=== PATIENT | male | born 1990 | race Two or more races ===

== ENCOUNTER 2025-04-12 21:01 | Emergency (ER) | payer MEDICAID, SELFPAY ==
[2025-04-12 21:04] VITALS: BMI 27.4
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
[2025-04-12 22:06] VITALS: BP 137/82; PULSE 90; RESP 16; TEMP 37.4; O2SAT 99
[2025-04-12] MEDS: IBUPROFEN TAB 400 MG TABLET 800 MG PO (23:44)
[2025-04-12 23:45] VITALS: BP 144/83; PULSE 84; RESP 18; TEMP 36.4; O2SAT 97
== END 2025-04-12 23:48 | disposition home or self-care (01) ==
LOC: SERX 04-13 00:03
PROVIDERS: Emergency Provider Emergency Medicine
DX: S13.4XXA Sprain of ligaments of cervical spine, initial encounter (principal); V43.52XA Car driver injured in collision with other type car in traffic accident, initial encounter
CPT/HCPCS: 72040; 73030; 99283; A9270